=== PATIENT | male | born 1980 | race Caucasian/White ===

== ENCOUNTER 2016-08-22 13:37 | Emergency (ER) | payer MEDICAID ==
--- NOTE | ~2016-08-22 | CR229 ---
[facility] A Service of [facility] / [facility] RADIOLOGY TEXT RESULTS PATIENT: NENA LERNER LOCATION: [facility] : 84 UNIT #: [id number] AGE: [address]: Last Lopez MD SEX: M ORDER DR: [id number] [facility] [address] [place], [place] [address] [id number] E MR#: [id number] Acc #: [id number] NAME: NENA LERNER : 1980 SEX: M STUDY DATE/TIME: 08/22/2016 14:20 UNIT: [facility] ROOM: STUDY DESCRIPTION: CR Shoulder Min 2 View Lt Attending Physician: Last Lopez M.D. Ordering Physician: Last Lopez M.D. Primary Care Physician: Diego Frost II., M.D. MEDICAL IMAGING REPORT This report is preliminary unless electronic signature is present EXAM Left shoulder 3 views 08/22/2016 COMPARISON STUDIES Pre- and post-reduction radiographs 08/14/2008 and 03/05/2008. FINDINGS There is a glenohumeral dislocation, most compatible with an anterior-inferior dislocation. Two anterior dislocations occurred in 2007 and 2008. Chronic Hill-Sachs deformity is noted. No acute fracture is seen. Consider a Y-view to completely confirm anterior dislocation if clinically warranted in this seizure patient. Visualized left thorax is unremarkable. IMPRESSION 1. Glenohumeral dislocation appears to be the anterior-inferior in direction, although no Y-view was obtained. Two previous anterior dislocations are documented in 2007 and 2008. 2. No visible acute fracture. Dictated by... Debbie Thomason M.D. THIS IS AN ELECTRONICALLY VERIFIED REPORT Debbie Thomason M.D. at 08/22/2016 6:42 PM [facility]/pcl TD: 08/22/2016 17:20 JOB #: [id number] MEDICAL IMAGING REPORT [facility] A Service of [facility] / [facility] RADIOLOGY TEXT RESULTS PATIENT: NENA LERNER LOCATION: [facility] : 84 UNIT #: [id number] AGE: [address]: Last Lopez MD SEX: M ORDER DR: Page 1 of 1 COPY
--- NOTE | ~2016-08-22 | CR226 ---
[facility] A Service of [facility] & [facility] RADIOLOGY TEXT RESULTS PATIENT: NENA LERNER LOCATION: [facility] : 84 UNIT #: [id number] AGE: [address]: Last Lopez MD SEX: M ORDER DR: [id number] [facility] [address] [place], [place] [address] [id number] E MR#: [id number] Acc #: [id number] NAME: NENA LERNER : 1980 SEX: M STUDY DATE/TIME: 08/22/2016 15:36 UNIT: [facility] ROOM: STUDY DESCRIPTION: CR Shoulder 1 View Lt Attending Physician: Last Lopez M.D. Ordering Physician: Last Lopez M.D. Primary Care Physician: Diego Frost II., M.D. MEDICAL IMAGING REPORT This report is preliminary unless electronic signature is present HISTORY Left shoulder 1-view. HISTORY Shoulder dislocation and reduction today. FINDINGS Single view of the left shoulder demonstrates the left shoulder dislocation noted earlier today has apparently been reduced with the glenohumeral alignment markedly improved. There is mild widening of the subacromial space, which could be due to shoulder effusion or joint laxity. Chronic well-marginated impression along the superolateral humeral head was present on prior studies from 03/05/2008 and 08/14/2008, compatible with Hill-Sachs lesion from known multiple prior shoulder dislocations. No acute fractures identified. Dictated by... Brody aSmpson M.D. THIS IS AN ELECTRONICALLY VERIFIED REPORT Brody Sampson M.D. at 08/22/2016 11:50 PM TITO/foster TD: 08/22/2016 19:18 JOB #: [id number] MEDICAL IMAGING REPORT Page 1 of 1 COPY
--- NOTE | ~2016-08-22 | CT71 ---
[facility] A Service of [facility] & [facility] RADIOLOGY TEXT RESULTS PATIENT: NENA LERNER LOCATION: [facility] : 84 UNIT #: [id number] AGE: [address]: Last Lopez MD SEX: M ORDER DR: [id number] [facility] [address] [place], [place] [address] [id number] E MR#: [id number] Acc #: [id number] NAME: NENA LERNER : 1980 SEX: M STUDY DATE/TIME: 08/22/2016 14:55 UNIT: [facility] ROOM: STUDY DESCRIPTION: CT Head Wo Contrast Attending Physician: Last Lopez M.D. Ordering Physician: Last Lopez M.D. Primary Care Physician: Diego Frost II., M.D. MEDICAL IMAGING REPORT This report is preliminary unless electronic signature is present EXAM CT head without contrast INDICATIONS Seizure today. Patient also dislocated his left shoulder. TECHNIQUE Axial CT images were obtained from the vertex of the skull through the skull base. No intravenous contrast was administered. Axial noncontrast images were obtained from the skull base to the vertex. Ventricular size and configuration are normal. There is no evidence of acute infarct or hemorrhage. There are no extra-axial fluid collections. No mass lesion or mass effect is seen. There are no skull fractures. IMPRESSION Normal noncontrast head CT. Dictated by... Sharonda King M.D. THIS IS AN ELECTRONICALLY VERIFIED REPORT Sharonda King M.D. at 08/23/2016 1:19 PM NOEL/won TD: 08/22/2016 17:44 JOB #: [id number] MEDICAL IMAGING REPORT Page 1 of 1 COPY
[2016-08-22 15:39] LABS: CALCIUM SERUM 9.4 mg/dL (8.4-10.2); GLOM FILT RATE Estimated 97.8 mL/min (>60)
== END 2016-08-22 16:55 | disposition home or self-care (01) ==
LOC: CED 13:37
PROVIDERS: Emergency Medicine
DX: G40.409 Other generalized epilepsy and epileptic syndromes, not intractable, without status epilepticus (principal); S43.005A Unspecified dislocation of left shoulder joint, initial encounter; X58.XXXA Exposure to other specified factors, initial encounter
CPT/HCPCS: 23650; 70450; 73020; 73030; 80048; 80164; 99152; 99284; J1170; J1953